=== PATIENT | female | born 1970 | race Caucasian/White ===

== ENCOUNTER 2017-11-04 10:18 | Outpatient (CLI) | payer OTHER | END 2017-11-04 10:19 | disposition home or self-care (01) | LOC: BICMAMMO 10:18 | PROVIDERS: ATTEND Internal Medicine | DX: Z12.31 Encounter for screening mammogram for malignant neoplasm of breast (principal) | CPT/HCPCS: 77067; G0202 ==

== ENCOUNTER 2018-10-20 09:15 | Day surgery (SDC) | payer OTHER ==
[2018-10-16 16:03] VITALS: BMI 59.4
[2018-10-20] MEDS ORDERED: PROPOFOL 40 ML ONE (12:08)
--- NOTE | 2018-10-20 13:08 | OP ---
DATE OF PROCEDURE: 10/20/2018 SURGEON: Jules Ruff M.D. PREPROCEDURE DIAGNOSIS: Colorectal cancer screening. POSTOPERATIVE DIAGNOSES: 1. Diminutive polyp in descending colon, 5 mm in size, removed by cold snare polypectomy and submitt ed to pathology. 2. Otherwise, normal colonoscopy. ANESTHESIA: TIVA. RECOMMENDATIONS: Await histopathology, if this is abnormal we will instruct her to repeat a colonosc opy in 5 years. PROCEDURE IN DETAIL: After the patient was informed of the risks, benefits, possible complications o f endoscopy including perforation, reactions to medication and aspiration, informed consent was obtai tami. The patient brought to the endoscopy suite where she was sedated in gradual fashion. Once she was comfortable, a rectal exam was performed which was normal. The endoscope was advanced in the aggie canal through the colon to the cecum that was identified by of ileocecal valve and appendiceal orif ice. The scope was then slowly removed. The prep was good. There was a diminutive polyp in descend ing colon about 5 mm in size. This was removed by cold snare polypectomy and retrieved and submitted to Pathology. Retroflexed views in the rectum were normal. No other lesions were seen. The patien t tolerated the procedure well with no complications.
[2018-10-20] MEDS ORDERED: Lidocaine 1% PF 5 ML VIAL ONE (13:51)
[2018-10-20] MEDS ORDERED: PROPOFOL 200 MG/20 ML VIAL ONE (13:51)
== END 2018-10-20 13:23 | disposition home or self-care (01) ==
LOC: SDC 09:15
PROVIDERS: ATTEND Internal Medicine Gastroenterology
PROC: 0DBM8ZX Excision of Descending Colon, Via Natural or Artificial Opening Endoscopic, Diagnostic (ICD-10-PCS; principal; 2018-10-20)
DX: Z12.11 Encounter for screening for malignant neoplasm of colon (principal); K63.5 Polyp of colon; J45.909 Unspecified asthma, uncomplicated; K21.9 Gastro-esophageal reflux disease without esophagitis; E78.00 Pure hypercholesterolemia, unspecified; E07.9 Disorder of thyroid, unspecified; E66.01 Morbid (severe) obesity due to excess calories; Z68.43 Body mass index [BMI] 50.0-59.9, adult; Z87.891 Personal history of nicotine dependence; Z79.1 Long term (current) use of non-steroidal anti-inflammatories (NSAID); Z79.82 Long term (current) use of aspirin; Z79.899 Other long term (current) drug therapy; Z88.0 Allergy status to penicillin; Z91.048 Other nonmedicinal substance allergy status; Z98.84 Bariatric surgery status
CPT/HCPCS: 88305; J2001; J2704

== ENCOUNTER 2018-10-24 11:01 | Emergency (ER) | payer OTHER ==
[2018-10-24 12:04] LABS: Band 2 % (5-11); Eosinophils 1 % (0-10); Hemoglobin 16.3 g/dL (12.0-16.0); Lymphocytes 26 % (21-51); MDiff Complete? YES; Mean Corpuscular HGB CONC 32.4 g/dL (32.0-36.0); Mean Corpuscular Hemoglobin 28.7 pg (27.0-31.0); Mean Corpuscular Volume 88.4 fL (78.0-98.0); Mean Platelet Volume 9.1 fL (7.4-10.4); Monocytes 22 % (0-10); Neutrophil 28 % (42-75); PLT Morphology Comment Appears Adequate; Platelet Count 155 thou/uL (130-400); RBC Distribution Width 12.5 % (11.5-14.5); Reactive Lymphocytes 19 % (0-10); Red Blood Cell (RBC) Count 5.68 mill/uL (4.20-5.40); White Blood Cell (WBC) Count 2.5 thou/uL (4.8-10.8)
[2018-10-24 12:11] LABS: ALT (SGPT) 61 U/L (8-55); AST (SGOT) 52 U/L (5-34); Alkaline Phosphatase 112 U/L (40-150); Anion Gap 15 mmol/L (10-20); BUN (Urea Nitrogen) 8 mg/dL (7.0-18.7); Calc. Creatinine Clearance 0 mL/min (70-130); Calcium 9.3 mg/dL (7.8-10.44); Carbon Dioxide 23 mmol/L (22-29); Chloride 105 mmol/L (98-107); Estimated GFR-MDRD 82; Globulin 3.3 g/dL (2.4-3.5); Glucose 108 mg/dL (70-105); Lipase 35 U/L (8-78); Protein, Total 7.3 g/dL (6.0-8.3); Sodium 139 mmol/L (136-145)
[2018-10-24] MEDS ORDERED: Dicyclomine 20 MG TAB ONE (12:31)
== END 2018-10-24 12:39 | disposition home or self-care (01) ==
LOC: SCSER 11:01
DX: R19.7 Diarrhea, unspecified (principal); R10.9 Unspecified abdominal pain; E03.9 Hypothyroidism, unspecified; E78.5 Hyperlipidemia, unspecified; M19.90 Unspecified osteoarthritis, unspecified site; J45.909 Unspecified asthma, uncomplicated; E66.9 Obesity, unspecified; Z86.711 Personal history of pulmonary embolism; Z86.718 Personal history of other venous thrombosis and embolism; Z79.899 Other long term (current) drug therapy; Z79.82 Long term (current) use of aspirin
CPT/HCPCS: 36415; 80053; 83690; 85025; 99284

== ENCOUNTER 2018-11-05 16:08 | Outpatient (CLI) | payer OTHER | END 2018-11-05 16:09 | disposition home or self-care (01) | LOC: BICMAMMO 16:08 | PROVIDERS: ATTEND Internal Medicine | DX: Z12.31 Encounter for screening mammogram for malignant neoplasm of breast (principal) | CPT/HCPCS: 77063; 77067 ==

== ENCOUNTER 2019-02-20 09:26 | Outpatient (CLI) | payer OTHER ==
--- NOTE | 2019-02-20 12:21 | RAD ---
BARIUM SWALLOW ESOPHAGRAM: HISTORY: Morbid obesity. Excessive caloric intake. COMPARISON: None. FINDINGS: The patient is over the weight limit to fit on the standing portion of the table for recumbency. The patient was given thick liquid barium. Primary and secondary peristalsis was normal. There was narrowing of the GE junction at the Lap-Band. A 13 mm tablet was not given, due to the narrowing. T he contrast did pass through this narrowing with ease. No extrinsic mass effect. No tertiary contractions. No hernia. IMPRESSION: Narrowing through the deflated Lap-Band. POS: [place]
== END 2019-02-20 09:27 | disposition home or self-care (01) ==
LOC: RAD 09:26
PROVIDERS: ATTEND Surgery
DX: E66.01 Morbid (severe) obesity due to excess calories (principal); K22.2 Esophageal obstruction
CPT/HCPCS: 74220

== ENCOUNTER 2019-03-03 15:41 | Outpatient (CLI) | payer OTHER | END 2019-03-03 15:42 | disposition home or self-care (01) | LOC: DTY/OP 15:41 | PROVIDERS: ATTEND Surgery | DX: E66.01 Morbid (severe) obesity due to excess calories (principal) | CPT/HCPCS: 97802 ==

== ENCOUNTER 2019-03-24 18:38 | Emergency (ER) | payer OTHER ==
--- NOTE | 2019-03-24 19:25 | RAD ---
3 views left shoulder: 03/24/2019 HISTORY: Left shoulder pain FINDINGS: Mild degenerative change of the acromioclavicular joint. No acute fracture or dislocation. IMPRESSION: Degenerative change. No acute fracture or dislocation.
[2019-03-24 20:41] LABS: #Eosinphils 0.1 thou/uL (0.0-0.7); #Lymphocytes 1.5 thou/uL (1.20-3.40); #Monocytes 0.5 thou/uL (0.11-0.59); #Neutrophils 2.7 thou/uL (1.40-6.50); %Basophils 0.9 % (0.0-1.0); %Eosinophils 2.5 % (0.0-10.0); %Lymphocytes 31.4 % (21.0-51.0); %Monocytes 9.9 % (0.0-10.0); %Neutrophils 55.4 % (42.0-75.0); Hemoglobin 14.4 g/dL (12.0-16.0); Mean Corpuscular Hemoglobin 30.4 pg (27.0-31.0); Mean Corpuscular Volume 92.1 fL (78.0-98.0); Mean Platelet Volume 8.7 fL (7.4-10.4); Platelet Count 177 thou/uL (130-400); Red Blood Cell (RBC) Count 4.76 mill/uL (4.20-5.40); White Blood Cell (WBC) Count 4.8 thou/uL (4.8-10.8)
--- NOTE | 2019-03-24 20:47 | ULT ---
LEFT UPPER EXTREMITY VENOUS DOPPLER ULTRASOUND: 03/24/19 COMPARISON: None. HISTORY: Pain and swelling, assess for DVT. TECHNIQUE: Multiplanar whyte scale sonographic imaging venous structures of the left upper extremity obtained wit h color flow and spectral analysis. FINDINGS: Left internal jugular vein, subclavian vein, brachial vein, radial vein, ulnar vein, cephalic vein, a nd basilic vein are patent. Normal blood flow, augmentation and compression within the deep venous sy stem. No evidence for DVT. IMPRESSION: No evidence for deep venous thrombosis of the left upper extremity. POS: [place]
[2019-03-24 20:50] LABS: ALT (SGPT) 30 U/L (8-55); AST (SGOT) 25 U/L (5-34); Albumin 3.9 g/dL (3.5-5.0); Alkaline Phosphatase 97 U/L (40-150); Anion Gap 13 mmol/L (10-20); BUN (Urea Nitrogen) 11 mg/dL (7.0-18.7); Bilirubin, Total 0.6 mg/dL (0.2-1.2); Calc. Creatinine Clearance 0 mL/min (70-130); Calcium 9.7 mg/dL (7.8-10.44); Carbon Dioxide 29 mmol/L (22-29); Estimated GFR-MDRD 87; Globulin 2.9 g/dL (2.4-3.5); Glucose 102 mg/dL (70-105); Protein, Total 6.8 g/dL (6.0-8.3)
[2019-03-24 20:55] LABS: Chloride 104 mmol/L (98-107); Potassium 3.8 mmol/L (3.5-5.1); Sodium 142 mmol/L (136-145)
[2019-03-24 21:07] LABS: Prothrombin Time 13.1 SEC (12.0-14.7)
== END 2019-03-24 21:05 | disposition home or self-care (01) ==
LOC: SCSER 18:38
DX: M25.512 Pain in left shoulder (principal); E03.9 Hypothyroidism, unspecified; E78.5 Hyperlipidemia, unspecified; E66.9 Obesity, unspecified; Z86.711 Personal history of pulmonary embolism; J45.909 Unspecified asthma, uncomplicated; Z86.718 Personal history of other venous thrombosis and embolism; Z79.899 Other long term (current) drug therapy; Z79.51 Long term (current) use of inhaled steroids; Z79.82 Long term (current) use of aspirin
CPT/HCPCS: 80053; 84484; 85025; 85610

== ENCOUNTER 2019-04-02 15:31 | Outpatient (CLI) | payer OTHER | END 2019-04-02 15:32 | disposition home or self-care (01) | LOC: DTY/OP 15:31 | PROVIDERS: ATTEND Internal Medicine | DX: E66.01 Morbid (severe) obesity due to excess calories (principal) | CPT/HCPCS: 97802 ==

== ENCOUNTER 2019-04-15 06:26 | Outpatient (CLI) | payer OTHER ==
[2019-04-15 17:46] LABS: Hemoglobin 15.2 g/dL (12.0-16.0)
[2019-04-15 18:13] LABS: Anion Gap 11 mmol/L (10-20); BUN (Urea Nitrogen) 10 mg/dL (7.0-18.7); Calc. Creatinine Clearance 0 mL/min (70-130); Calcium 9.7 mg/dL (7.8-10.44); Carbon Dioxide 31 mmol/L (22-29); Chloride 100 mmol/L (98-107); Estimated GFR-MDRD 87; Glucose 107 mg/dL (70-105); Potassium 3.4 mmol/L (3.5-5.1); Sodium 139 mmol/L (136-145)
== END 2019-04-15 06:27 | disposition home or self-care (01) ==
LOC: LABBT 06:26
PROVIDERS: ATTEND Internal Medicine Cardiovascular Disease
DX: Z01.812 Encounter for preprocedural laboratory examination (principal); R94.39 Abnormal result of other cardiovascular function study
CPT/HCPCS: 80048; 85014; 85018

== ENCOUNTER 2019-04-20 05:53 | Day surgery (SDC) | payer OTHER ==
[2019-04-15 17:01] VITALS: BMI 55.7
[2019-04-20] MEDS ORDERED: Verapamil 5 MG/2 ML VIAL ONE (08:25)
[2019-04-20] MEDS ORDERED: Nitroglycerin 100MG/250ML BOT 250 ML ONE (08:25)
[2019-04-20] MEDS ORDERED: Heparin 10,000 UNITS/1 ML VIAL ONE (08:25)
[2019-04-20] MEDS ORDERED: Iopamidol 370 76% 100 ML VIAL ONE (11:05)
--- NOTE | 2019-04-21 02:48 | DIS ---
DATE OF ADMISSION: 04/20/2019 DATE OF DISCHARGE: 04/20/2019 ADMITTING DIAGNOSES: Abnormal stress test, hypertension, dyslipidemia, history of tobacco abuse, morbid obesity. She was seen as for a preop clearance in the office and was found to have an abnormal stress test. She was advised to undergo cardiac catheterization definitively to rule out evidence of underlying coronary artery disease. She also has a history of factor V Leiden deficiency. DISCHARGE DIAGNOSES: Abnormal stress test, hypertension, dyslipidemia, history of tobacco abuse, morbid obesity. She was seen as for a preop clearance in the office and was found to have an abnormal stress test. She also has a history of factor V Leiden deficiency. There is no evidence of coronary artery disease. PROCEDURE IN HOSPITAL: Included cardiac catheterization, left ventriculogram, and coronary arteriography using a right radial artery approach. DISCHARGE MEDICATIONS: Same as her admission medications, which include 1. Tramadol HCL 50 mg as needed. 2. Clotrimazole-betamethasone 0.05% cream as directed. 3. Rosuvastatin 10 mg q.p.m. daily. 4. Lisinopril/hydrochlorothiazide 10/12.5 daily. 5. Levothyroxine 88 mcg daily. 6. Azelastine HCL solution nasal spray. 7. Valacyclovir HCL 500 mg tablets. 8. ProAir as needed. FOLLOWUP: Her followup will be with me in one month in the office. She will continue routine followups with Dr. Chacon and she will also see Dr. Davenport concerning her bariatric surgery. HOSPITAL COURSE: This is a very pleasant 48-year-old morbidly obese female, who was seen in the office as part of a preop evaluation. She did have a history of hypertension, dyslipidemia, and history of tobacco abuse in the past as well as morbid obesity. She was advised to undergo stress testing. This was performed and it appeared that she had some inferior wall possible scar with blanco-infarct ischemia. She was advised to undergo a cardiac catheterization due to her multiple risk factors for coronary artery disease. She was taken to the cardiac dental laboratory manager, where she underwent the procedure today. There were no difficulties or complications encountered. She was found to have large normal coronary arteries on the left system. She also was found to have a small right coronary artery, but no evidence of stenosis was found in any other arteries. The right coronary is a small vessel. She has a left dominant system. The patient tolerated the procedure well. There were no difficulties or complications encountered. We used a right radial artery approach and she did very well with this when she remained stable. Blood pressure is stable. She will be discharged to home and can continue with her preop procedures and evaluations for her gastric sleeve procedure. She has only been on aspirin for her Factor V Leiden deficiency. She had been on Coumadin in the past after having arterial, as well as venous thrombosis recently. She has only been on aspirin after she had had increased bleeding due to menstruation. She is no longer menstruating. I believe she has had hysterectomy, but we may need to consider resuming her oral anticoagulation. We will need to discuss this with the batch trucker. Certainly around the time of the surgery, we will need to be very careful about DVTs in this lady with Factor V Leiden deficiency. Job ID: [id number]
== END 2019-04-20 11:43 | disposition home or self-care (01) ==
LOC: CCL 05:53
PROVIDERS: ATTEND Internal Medicine Cardiovascular Disease
PROC: 4A023N7 Measurement of Cardiac Sampling and Pressure, Left Heart, Percutaneous Approach (ICD-10-PCS; principal; 2019-04-20)
PROC: B2111ZZ Fluoroscopy of Multiple Coronary Arteries using Low Osmolar Contrast (ICD-10-PCS; principal; 2019-04-20)
DX: R94.39 Abnormal result of other cardiovascular function study (principal); I10 Essential (primary) hypertension; E78.00 Pure hypercholesterolemia, unspecified; E07.9 Disorder of thyroid, unspecified; E78.2 Mixed hyperlipidemia; D68.2 Hereditary deficiency of other clotting factors; E66.01 Morbid (severe) obesity due to excess calories; Z68.43 Body mass index [BMI] 50.0-59.9, adult; Z87.891 Personal history of nicotine dependence; Z86.718 Personal history of other venous thrombosis and embolism; Z79.899 Other long term (current) drug therapy; Z88.0 Allergy status to penicillin; Z91.048 Other nonmedicinal substance allergy status
CPT/HCPCS: 93458; C1769; J1644; Q9967

== ENCOUNTER 2019-06-01 09:09 | Outpatient (CLI) | payer OTHER ==
[2019-06-01 16:47] LABS: #Eosinphils 0.1 thou/uL (0.0-0.7); #Lymphocytes 1.3 thou/uL (1.20-3.40); #Monocytes 0.6 thou/uL (0.11-0.59); #Neutrophils 2.7 thou/uL (1.40-6.50); %Eosinophils 1.3 % (0.0-10.0); %Lymphocytes 28.6 % (21.0-51.0); %Neutrophils 57.1 % (42.0-75.0); Hemoglobin 15.2 g/dL (12.0-16.0); Mean Corpuscular HGB CONC 34.3 g/dL (32.0-36.0); Mean Corpuscular Hemoglobin 32.1 pg (27.0-31.0); Mean Corpuscular Volume 93.4 fL (78.0-98.0); Mean Platelet Volume 7.9 fL (7.4-10.4); Platelet Count 219 thou/uL (130-400); RBC Distribution Width 12.7 % (11.5-14.5); Red Blood Cell (RBC) Count 4.72 mill/uL (4.20-5.40); White Blood Cell (WBC) Count 4.7 thou/uL (4.8-10.8)
[2019-06-01 16:57] LABS: Hemoglobin A1c 6.1 % (4.0-6.0)
[2019-06-01 17:10] LABS: ALT (SGPT) 51 U/L (8-55); AST (SGOT) 49 U/L (5-34); Albumin 4.1 g/dL (3.5-5.0); Alkaline Phosphatase 108 U/L (40-150); Anion Gap 11 mmol/L (10-20); BUN (Urea Nitrogen) 14 mg/dL (7.0-18.7); Bilirubin, Direct 0.3 mg/dL (0.1-0.3); Bilirubin, Total 0.7 mg/dL (0.2-1.2); Calc. Creatinine Clearance 0 mL/min (70-130); Calcium 9.5 mg/dL (7.8-10.44); Carbon Dioxide 29 mmol/L (22-29); Chloride 102 mmol/L (98-107); Estimated GFR-MDRD Greater than 90; Globulin 2.5 g/dL (2.4-3.5); Glucose 92 mg/dL (70-105); Protein, Total 6.6 g/dL (6.0-8.3); Sodium 138 mmol/L (136-145)
--- NOTE | 2019-06-01 17:50 | RAD ---
CHEST TWO VIEWS: INDICATIONS: Preoperative evaluation. COMPARISON: 11/26/2013 FINDINGS: The chest is similar in appearance to 11/26/2013, without new consolidation, effusion, or discrete pn eumothorax. The cardiac silhouette is of normal size. IMPRESSION: Stable chest. POS: [place]
== END 2019-06-01 09:10 | disposition home or self-care (01) ==
LOC: LABBT 09:09
PROVIDERS: ATTEND Surgery
DX: Z01.818 Encounter for other preprocedural examination (principal); T85.858A Stenosis due to other internal prosthetic devices, implants and grafts, initial encounter; E66.01 Morbid (severe) obesity due to excess calories
CPT/HCPCS: 71046; 80053; 80076; 83036; 85025

== ENCOUNTER 2019-06-01 16:00 | Inpatient (IN) | payer OTHER ==
[2019-06-10] MEDS ORDERED: Heparin 5,000 UNITS/ML VIAL ONE (08:36)
[2019-06-10] MEDS ORDERED: Bupivacaine/Epinephrine 0.25% 30 ML VIAL ONE (10:06)
[2019-06-10] MEDS ORDERED: Lidocaine 2% Jelly 5 ML TUBE ONE (10:21)
[2019-06-10] MEDS ORDERED: Levofloxacin 500 mg/D5W 100 ml Premix Bag ONE (10:21)
[2019-06-10] MEDS ORDERED: Fentanyl 100 MCG/2 ML VIAL ONE ×3 (10:21→13:05)
[2019-06-10] MEDS ORDERED: Dextrose 5% in Water 1,000 ML IV PRN (12:22)
[2019-06-10] MEDS ORDERED: diphenhydrAMINE 50 MG/ML VIAL IVP PRN ×2 (12:22→12:58)
[2019-06-10] MEDS ORDERED: Promethazine HCl 25 MG/ML VIAL IM PRN ×3 (12:22→12:58)
[2019-06-10] MEDS ORDERED: Ondansetron PF 4 MG/2 ML Vial IVP PRN ×2 (12:22→12:58)
[2019-06-10] MEDS ORDERED: hydrALAZINE 20 MG/ML VIAL SLOW IVP PRN (12:22)
[2019-06-10] MEDS ORDERED: Hydrocodone-Acetamin 15 ML UDCUP PO PRN (12:22)
[2019-06-10] MEDS ORDERED: Dextrose 50% Abboject 50 ML SYRINGE SLOW IVP PRN (12:22)
[2019-06-10] MEDS ORDERED: Promethazine HCl 25 MG/ML VIAL SLOW IVP PRN (12:35)
[2019-06-10] MEDS ORDERED: Ondansetron HCl/PF 4 MG/2 ML Vial IVP PRN (12:35)
[2019-06-10] MEDS ORDERED: fentaNYL Citrate/PF 2,000 MCG in Sodium Chloride 0.9% 60 ML IV PRN (12:58)
[2019-06-10] MEDS ORDERED: diphenhydrAMINE 50 MG/ML VIAL IM PRN (12:58)
[2019-06-10] MEDS ORDERED: diphenhydrAMINE 25 MG CAP PO PRN (12:58)
[2019-06-10] MEDS ORDERED: Naloxone HCl 0.4 mg/ml Vial IV PRN (12:58)
[2019-06-10] MEDS ORDERED: Zolpidem Tartrate 5 MG TAB PO PRN (12:58)
[2019-06-10] MEDS ORDERED: Communication Order-Pharmacy FS SCH (13:00)
--- NOTE | 2019-06-10 14:50 | OP ---
DATE OF PROCEDURE: 06/10/2019 PREOPERATIVE DIAGNOSES: Lap band intolerance and morbid obesity. PROCEDURES PERFORMED: Laparoscopic removal of lap band and port, sleeve gastrectomy, and esophagogastroscopy. INDICATIONS: A 48-year-old female, who had had a lap band many years ago, initially did well, did not tolerate any pills very well, had to have it completely emptied, and gained all her weight back with comorbidities. FINDINGS: Intact band system. A 38-[place] bougie used. DESCRIPTION OF PROCEDURE: After informed consent was obtained, the patient was taken to the operating room and given general endotracheal anesthesia, placed in the supine position. Abdomen was prepped and draped in usual fashion. Local anesthesia was infiltrated subcutaneously and deep. A 12 mm incision was performed approximately 8 inches above the xiphoid slightly to the left. Veress needle inserted. Drop test performed. Pneumoperitoneum was created to a volume of 2 L of carbon dioxide. Utilizing a bladeless 12 mm trocar and 0-degree laparoscope, direct visual entry in the abdominal cavity was performed. Pneumoperitoneum was created to a pressure of 15 mmHg. A 0-degree laparoscope was inserted under direct vision. A Brandee liver retractor inserted. Left lobe of the liver retracted superiorly. Pylorus identified. A 12 mm port placed on the right beneath it and two 12s were placed in left subcostal, one of which was where the port was. The lap band tubing was divided with scissors, then traced back to the buckle. The buckle was dissected out. The capsule incised circumferentially and the band removed from around the stomach and from the abdomen. Then, the omentum was taken off the greater curvature 5 cm from the pylorus utilizing the LigaSure. Short gastrics divided with LigaSure. Left crura defined with the LigaSure. The entire hiatal opening was dissected out to ensure no hiatal hernia. Then, a 38-[place] bougie was inserted directed into the antrum. The linear 60 mm green load stapler used to divide the antrum to the bougie. A series of golds were used along the bougie as she had a thicker than average stomach and then at the very end, a blue staple load used to divide the most upper portion of the stomach. Intraoperative endoscopy was performed. The videoendoscope inserted under direct vision, advanced into the sleeve. Staple line inspected. There was no bleeding. Staple line then tested by inflating the new stomach with pressurized air and water, there was no air leak. Stomach decompressed. Scope removed. The lap band port was then dissected out and removed. Then, the remnant of the stomach was removed through the same incision, sent to Pathology for further analysis. Hemostasis assured. The fascia closed with a 0 Vicryl suture and the GraNee needle. This incision was thoroughly irrigated with saline. Hemostasis assured. Then, the trocars and retractors removed. Skin closed with interrupted 4-0 Rapide. Dermabond applied. The patient tolerated the procedure well, transferred to Recovery in good condition. Sponge and needle count verified correct x2. Job ID: [id number]
[2019-06-10 15:51] VITALS: BMI 55.2
[2019-06-10] MEDS ORDERED: ePHEDrine 50 MG/ML VIAL ONE (16:07)
[2019-06-10] MEDS ORDERED: Lidocaine 1% PF 5 ML VIAL ONE (16:07)
[2019-06-10] MEDS ORDERED: PROPOFOL 200 MG/20 ML VIAL ONE (16:07)
[2019-06-10] MEDS ORDERED: Ondansetron PF 4 MG/2 ML Vial ONE (16:07)
[2019-06-10] MEDS ORDERED: Glycopyrrolate 0.2 MG/ML 5 ML SYRINGE ONE (16:07)
[2019-06-10] MEDS ORDERED: Rocuronium Bromide 10 MG/ML (10ML VIAL) ONE (16:07)
[2019-06-10] MEDS ORDERED: Dexamethasone 20 MG/5 ML VIAL ONE (16:07)
[2019-06-10] MEDS: Ketorolac Tromethamine 30 MG/ML VIAL IVP SCH (17:50)
[2019-06-10] MEDS: D5 1/2 NS w/20 mEq KCL 1,000 ML IV SCH (17:57)
[2019-06-10] MEDS: Enoxaparin Sodium 40 MG/0.4 ML SYRINGE SC SCH (20:25)
[2019-06-10] MEDS ORDERED: Enoxaparin Sodium 40 MG/0.4 ML SYRINGE SC SCH (21:00)
[2019-06-11] MEDS: Ketorolac Tromethamine 30 MG/ML VIAL IVP SCH ×3 (00:20→11:40)
[2019-06-11] MEDS: D5 1/2 NS w/20 mEq KCL 1,000 ML IV SCH ×3 (00:22→12:38)
[2019-06-11 05:01] LABS: #Lymphocytes 0.8 thou/uL (1.20-3.40); #Monocytes 0.7 thou/uL (0.11-0.59); #Neutrophils 7.4 thou/uL (1.40-6.50); %Basophils 0.1 % (0.0-1.0); %Eosinophils 0.2 % (0.0-10.0); %Lymphocytes 8.9 % (21.0-51.0); %Monocytes 7.9 % (0.0-10.0); %Neutrophils 82.9 % (42.0-75.0); Hemoglobin 14.3 g/dL (12.0-16.0); Mean Corpuscular HGB CONC 32.7 g/dL (32.0-36.0); Mean Corpuscular Hemoglobin 30.9 pg (27.0-31.0); Mean Corpuscular Volume 94.4 fL (78.0-98.0); Mean Platelet Volume 8.8 fL (7.4-10.4); Platelet Count 209 thou/uL (130-400); RBC Distribution Width 12.5 % (11.5-14.5); Red Blood Cell (RBC) Count 4.63 mill/uL (4.20-5.40); White Blood Cell (WBC) Count 8.9 thou/uL (4.8-10.8)
[2019-06-11 05:23] LABS: Anion Gap 11 mmol/L (10-20); BUN (Urea Nitrogen) 8 mg/dL (7.0-18.7); Calc. Creatinine Clearance 240 mL/min (70-130); Calcium 9.3 mg/dL (7.8-10.44); Carbon Dioxide 27 mmol/L (22-29); Chloride 104 mmol/L (98-107); Estimated GFR-MDRD 89; Glucose 194 mg/dL (70-105); Sodium 137 mmol/L (136-145)
[2019-06-11] MEDS ORDERED: Levothyroxine Sodium 88 MCG TAB PO SCH (06:00)
[2019-06-11 07:41] VITALS: TEMP 97.9
[2019-06-11] MEDS: Enoxaparin Sodium 40 MG/0.4 ML SYRINGE SC SCH (08:07)
[2019-06-11] MEDS ORDERED: Pantoprazole 40 MG VIAL IVP SCH (09:00)
[2019-06-11] MEDS ORDERED: Enoxaparin Sodium 40 MG/0.4 ML SYRINGE SC SCH (09:00)
[2019-06-11] MEDS ORDERED: Hydrocodone-Acetamin 15 ML UDCUP PO PRN ×2 (10:12→10:15)
[2019-06-11 11:29] VITALS: BP 109/63
--- NOTE | 2019-06-11 16:13 | RAD ---
LIMITED UPPER GI: 06/11/19 INDICATIONS: Follow-up gastric sleeve procedure. The patient states that a gastric band was removed and there was luminal narrowing through the banded portion of the stomach prior to the sleeve procedure. FINDINGS/IMPRESSION: 15 mL of gastrografin was administered orally. The contrast pools in the lower esophagus and gastric pouch which is located above the diaphragm. There is delayed progression beyond this pooled contrast collection. After approximately 15 minutes, contrast began to progress through the sleeve portion of the stomach and into the duodenum. Subsequent images were obtained which showed decompression of the dilated pouch and contrast through the gastric lumen. POS: [place]
--- NOTE | 2019-06-12 05:13 | DIS ---
DATE OF ADMISSION: 06/10/2019 DATE OF DISCHARGE: 06/11/2019 DISCHARGE DIAGNOSES: 1. Morbid obesity. 2. Hypercoagulable state. PROCEDURES DURING ADMISSION: Laparoscopic sleeve gastrectomy, also lap band intolerance, removal of lap band and port, intraoperative esophagogastroscopy, postoperative Gastrografin swallow. HOSPITAL COURSE: The patient was admitted, taken to the operating room where she underwent laparoscopic removal of her band port and conversion to sleeve. Postoperatively, she has done well. She is tolerating liquids well. Her x-ray was fine. She was discharged home on hydrocodone, Zofran, lisinopril and Lovenox b.i.d. She will follow up with me in 2 weeks. Job ID: [id number]
== END 2019-06-11 14:25 | disposition home or self-care (01) | DRG 620 ==
LOC: SURG A 06-10 06:55
PROVIDERS: ADMIT Surgery; ATTEND Surgery
PROC: 0DB64Z3 Excision of Stomach, Percutaneous Endoscopic Approach, Vertical (ICD-10-PCS; principal; 2019-06-10)
PROC: 0DP64CZ Removal of Extraluminal Device from Stomach, Percutaneous Endoscopic Approach (ICD-10-PCS; 2019-06-10)
DX: E66.01 Morbid (severe) obesity due to excess calories (principal); D68.59 Other primary thrombophilia; J45.909 Unspecified asthma, uncomplicated; Z86.718 Personal history of other venous thrombosis and embolism
CPT/HCPCS: 36415; 74241; 80048; 85025; 88307; 88312; 94760; C9113; J1100; J1644; J1650; J1885; J1956; J2001; J2405; J2704; J3010; J3490

== ENCOUNTER 2019-11-06 09:06 | Outpatient (CLI) | payer OTHER ==
--- NOTE | 2019-11-06 10:59 | MMO ---
Bilateral MAMMO Bilat Screen [facility]. CLINICAL HISTORY: Patient is 49 years old and is seen for screening. The patient has no family history of breast cancer. The patient has no personal history of cancer. VIEWS: The views performed were: bilateral craniocaudal with tomosynthesis; bilateral mediolateral oblique with tomosynthesis; and left mediolateral oblique. FILMS COMPARED: The present examination has been compared to prior imaging studies performed at [facility] on 10/17/2012, 10/19/2013, 11/04/2017 and 11/05/2018. This study has been interpreted with the assistance of computer-aided detection. MAMMOGRAM FINDINGS: The breasts are almost entirely fat. There are no suspicious masses, suspicious calcifications, or new areas of architectural distortion. IMPRESSION: THERE IS NO MAMMOGRAPHIC EVIDENCE OF MALIGNANCY. A ROUTINE FOLLOW-UP MAMMOGRAM IN 1 YEAR IS RECOMMENDED. THE RESULTS OF THIS EXAM WERE SENT TO THE PATIENT. ACR BI-RADS Category 1 - Negative MAMMOGRAPHY NOTE: 1. A negative mammogram report should not delay a biopsy if a dominant of clinically suspicious mass is present. 2. Approximately 10% to 15% of breast cancers are not detected by mammography. 3. Adenosis and dense breasts may obscure an underlying neoplasm. Reported by: ALLEN GREENFIELD MD Electonically Signed: [id number]
== END 2019-11-06 09:07 | disposition home or self-care (01) ==
LOC: BICMAMMO 09:06
PROVIDERS: ATTEND Internal Medicine
DX: Z12.31 Encounter for screening mammogram for malignant neoplasm of breast (principal)
CPT/HCPCS: 77063; 77067

== ENCOUNTER 2021-02-20 11:21 | Outpatient (CLI) | payer OTHER | END 2021-02-20 11:22 | disposition home or self-care (01) | LOC: BICMAMMO 11:21 | PROVIDERS: ATTEND Internal Medicine | DX: Z12.31 Encounter for screening mammogram for malignant neoplasm of breast (principal) | CPT/HCPCS: 77063; 77067 ==

== ENCOUNTER 2022-05-18 12:57 | Outpatient (CLI) | payer OTHER | END 2022-05-18 12:58 | disposition home or self-care (01) | LOC: BICMAMMO 12:57 | PROVIDERS: ATTEND Internal Medicine | DX: Z12.31 Encounter for screening mammogram for malignant neoplasm of breast (principal) | CPT/HCPCS: 77063; 77067 ==

== ENCOUNTER 2025-07-14 10:51 | Outpatient (CLI) | payer OTHER | END 2025-07-14 10:52 | disposition home or self-care (01) | LOC: BICMAMMO 10:51 | PROVIDERS: ATTEND Internal Medicine | DX: Z12.31 Encounter for screening mammogram for malignant neoplasm of breast (principal) | CPT/HCPCS: 77063; 77067 ==

== ENCOUNTER 2025-10-08 07:19 | Outpatient (CLI) | payer OTHER ==
[2025-10-08] MEDS ORDERED: E-Z-HD 98% W/W 340GM BOT (x-ray ONLY) ONE (07:27)
[2025-10-08] MEDS ORDERED: Barium Sulfate 96% 176 GM BOT (xray ONLY) ONE (07:27)
== END 2025-10-08 07:20 | disposition home or self-care (01) ==
LOC: RAD 07:19
PROVIDERS: ATTEND Surgery
DX: K21.9 Gastro-esophageal reflux disease without esophagitis (principal); K44.9 Diaphragmatic hernia without obstruction or gangrene; Z98.890 Other specified postprocedural states
CPT/HCPCS: 74220

== ENCOUNTER 2025-11-09 17:56 | Emergency (ER) | payer OTHER ==
[2025-11-09 20:31] LABS: #Basophils 0.03 10x3/uL (0.0-0.2); #Eosinophils 0.14 10x3/uL (0.0-0.7); #Monocytes 0.86 10x3/uL (0.11-0.59); #Neutrophils 2.67 10x3/uL (1.40-6.50); %Basophils 0.6 % (0.0-1.0); %Eosinophils 3.0 % (0.0-10.0); %Lymphocytes 19.7 % (21.0-51.0); %Monocytes 18.6 % (0.0-10.0); %Neutrophils 57.9 % (42.0-75.0); Hematocrit 44.6 % (36.0-47.0); Hemoglobin 14.8 g/dL (12.0-16.0); Mean Corpuscular Hemoglobin 29.5 pg (27.0-31.0); Mean Corpuscular Volume 89.0 fL (78.0-98.0); Platelet Count 251 10x3/uL (130-400); Red Blood Cell (RBC) Count 5.01 mill/uL (4.20-5.40); White Blood Cell (WBC) Count 4.62 10x3/uL (4.8-10.8)
[2025-11-09 20:42] LABS: ALT (SGPT) 50 U/L (Less than 34); AST (SGOT) 28 U/L (11-34); Albumin 3.6 g/dL (3.1-4.5); Alkaline Phosphatase 99 U/L (40-110); Anion Gap 8 mmol/L (10-20); BUN (Urea Nitrogen) 9 mg/dL (9.8-20.1); Bilirubin, Total 0.6 mg/dL (0.3-1.2); Calc. Creatinine Clearance 0 mL/min (70-130); Calcium 9.4 mg/dL (7.8-10.44); Carbon Dioxide 25 mmol/L (22-29); Chloride 105 mmol/L (98-107); Globulin 3.2 g/dL (2.4-3.5); Glucose 105 mg/dL (70-105); Potassium 4.0 mmol/L (3.5-5.1); Sodium 134 mmol/L (136-145)
[2025-11-09 21:16] LABS: Bacteria/HPF None Seen HPF (None Seen); CAUTI Indications for Culture Pelvic or flank pain; Glucose, Urine (Dipstick) Normal (Negative); Leukocyte Negative Leu/uL (Negative); Protein, Urine (Dipstick) Negative (Neg-Trace); RBC/HPF 0-3 HPF (0-3); Specific Gravity, Urine 1.011 (1.002-1.036); WBC/HPF 0-3 HPF (0-3)
[2025-11-09 21:19] LABS: Urine Culture Reflex No No
== END 2025-11-09 21:49 | disposition home or self-care (01) ==
LOC: ERS 17:56
DX: R33.9 Retention of urine, unspecified (principal); E66.9 Obesity, unspecified; Z68.41 Body mass index [BMI] 40.0-44.9, adult
CPT/HCPCS: 51702; 80053; 81001; 85025; 87086